=== PATIENT | male | born 1965 | race African-American/Black ===

== ENCOUNTER 2022-11-10 12:36 | Emergency (ER) | payer OTHER, SELFPAY ==
[2022-11-10 12:48] VITALS: BP 183/98; PULSE 92; RESP 16; TEMP 36.2; O2SAT 99
--- NOTE | 2022-11-10 13:05 | ED.BACK ---
HPI - Back Pain/Injury General Chief Complaint: Back Pain/Injury Stated Complaint: Low Back Pain Source: patient and RN notes reviewed History of Present Illness HPI Narrative: 56 yo M presents to urgent care with complaints of lower back pain that radiates to bilateral, posterior legs. Pt reports this pain has been intermittent since April. Reports intermittent numbness and tingling, denies any at this time. Denies any injury. Denies any fevers, chills, dysuria, weakness, incontinence of urine or stool, or saddle anesthesia. Pt has taken 400 mg of ibuprofen without relief. Related Data Allergies Allergy/AdvReac Type Severity Reaction Status Date / Time No Known Allergies Allergy Verified 11/10/22 13:05 Review of Systems Review of Systems: Pertinent positives and pertinent negatives per HPI. PMFSH Comments At the time of my signature, I reviewed and agree with the nursing past medical, surgical, social, and family history. There is no relevant family history pertinent to the patient complaint. Exam Narrative: GENERAL: This is a well-nourished, well-developed patient, in no apparent distress. HEAD: normocephalic, atraumatic. EYES: Sclera clear/white. Vision is grossly intact. EARS: External ears normal, auditory canals clear and without drainage. Hearing grossly intact. NOSE: External nose normal with no obvious nasal discharge, nares without redness, no rhinorrhea. THROAT: Mucous membranes moist, posterior pharynx clear. NECK: Neck supple, non-tender without lymphadenopathy, masses or thyromegaly. CARDIOVASCULAR: Regular rate RESPIRATORY:No respiratory distress SKIN: warm, intact with no suspicious lesions or rash, good texture and turgor. NEURO: awake, alert, and oriented to person, place and time. There were no obvious focal neurologic abnormalities. EXTREMITIES: No clubbing, cyanosis, or edema. No joint tenderness, effusion, or edema noted. BACK: Nontender without deformity or crepitus. No flank tenderness. No spinal tenderness. Course Course Level of Care: Express Care Visit Vital Signs Vital signs: Vital Signs Temperature 97.1 F L 11/10/22 12:48 Pulse Rate 92 11/10/22 12:48 Respiratory Rate 16 11/10/22 12:48 Blood Pressure 183/98 H 11/10/22 12:48 Pulse Oximetry 99 11/10/22 12:48 Oxygen Delivery Room Air 11/10/22 12:48 Temperature 97.1 F L 11/10/22 12:48 Pulse Rate 92 11/10/22 12:48 Respiratory Rate 16 11/10/22 12:48 Blood Pressure 183/98 H 11/10/22 12:48 Pulse Oximetry 99 11/10/22 12:48 Oxygen Delivery Room Air 11/10/22 12:48 Reviewed MDM - Back Pain/Injury MDM Narrative Medical decision making narrative: Take steroids as directed. Take muscle relaxers as directed. Do not drive on muscle relaxers. May take 600 mg of ibuprofen (Advil, Motrin, Aleve) every 6 hours as needed with food. Follow up with rn primary care in 5-7 days. Differential Diagnosis Differential diagnosis: Likely lumbar radiculopathy, sciatica and strain of lumbar region Critical Care Time Critical Care Time Critical Care Time: No Discharge Plan Discharge Clinical Impression: Sciatica Qualifiers: Laterality: bilateral Qualified Code(s): M54.31 - Sciatica, right side Patient Disposition: Home, Self-Care Condition: Stable Instructions: Sciatica (ED) Additional Instructions: Take steroids as directed. Take muscle relaxers as directed. Do not drive on muscle relaxers. May take 600 mg of ibuprofen (Advil, Motrin, Aleve) every 6 hours as needed with food. Follow up with rn primary care in 5-7 days. Prescriptions: New cyclobenzaprine 10 mg tablet 10 mg PO TID PRN (Reason: muscle spasm) Qty: 14 0RF methylprednisolone [Methylpred DP] 4 mg tablets,dose pack 4 mg PO DAILY Qty: 21 0RF Rx Instructions: Dose pack directions Follow-up/Referrals: PHYSICIAN,[facility] [Primary Care Provider] - Stand Alone Forms: Work/School Release IP Time of Disp
== END 2022-11-10 13:18 | disposition home or self-care (01) ==
PROVIDERS: Emergency Provider Nurse Practitioner Family
DX: M54.31 Sciatica, right side (principal)
CPT/HCPCS: 99213; G0463